=== PATIENT | female | born 1990 | race Caucasian/White ===

== ENCOUNTER → 2023-07-15 | Outpatient (CLI) | payer BC ==
--- NOTE | 2023-07-15 20:20 | US ---
EXAMINATION TYPE: US extremity nonvasc mass RT DATE OF EXAM: 07/15/2023 COMPARISON: NONE CLINICAL INDICATION: Female, 32 years old with history of R22.31 LOCALIZED SWELLING, MASS AND LUMP, R IGHT UP; Lump rt arm at elbow x 5 months. TECHNIQUE: FINDINGS: Scanned right arm at elbow vessels visualized. No abnormalities seen. IMPRESSION: 1. No abnormal ultrasound findings at the palpable region right elbow.
== END | disposition home or self-care (01) ==
LOC: RADUSWWP 14:21
PROVIDERS: ATTEND Family Medicine
DX: R22.31 Localized swelling, mass and lump, right upper limb (principal)

== ENCOUNTER 2023-09-24 11:16 | Day surgery (SDC) | payer BC ==
[2023-09-23 08:57] VITALS: BMI 20.5
[~2023-09-24 11:16] MED LIST: LIDOCAINE 1% (10MG/ML) FOR IV START INTRADERMA PRN; MIDAZOLAM 2 MG/2 ML VIAL IV PRN
[2023-09-24 12:58] VITALS: TEMP 98.2
[2023-09-24] MEDS: IV FLUID CONTINUATION 1,000 ML IV ONE ×2 (13:05→13:39)
[2023-09-24] MEDS: LACTATED RINGERS 1,000 ML IV SCH (13:07)
[2023-09-24] MEDS ORDERED: LIDOCAINE 1% INJ 10MG/ML (20 ML MDV) ONE (13:40)
[2023-09-24] MEDS ORDERED: PROPOFOL 10 MG/ML 20 ML VIAL IV ONE (13:40)
--- NOTE | 2023-09-24 13:55 | P.PCN ---
Date of Procedure: 09/24/23 Procedure(s) Performed: BRIEF HISTORY: Patient is a 32-year-old pleasant white female scheduled for an elective colonoscopy as a part of evaluation of change in bowel habits for the last 6 months duration. PROCEDURE PERFORMED: Colonoscopy. PREOPERATIVE DIAGNOSIS: Change in bowel habits. IV sedation per Anesthesia. PROCEDURE: After informed consent was obtained, the patient, was brought into the endoscopy unit. IV sedation was administered by Anesthesia under continuous monitoring. Digital rectal examination was normal. Initially the Olympus CF-160 flexible video colonoscope was then inserted in the rectum, gradually advanced into the cecum without any difficulty. Careful examination was performed as the scope was gradually being withdrawn. Ileocecal valve and the appendiceal orifice were visualized and appeared normal. Prep was excellent. Terminal ileum was intubated in 20 cm visualized and appeared normal. Mucosa of the cecum, ascending colon, transverse colon, descending colon, sigmoid colon, and rectum appeared normal. Retroflexion was performed in the rectum and no lesions were seen. The patient tolerated the procedure well. IMPRESSION: Normal-appearing colon from rectum to cecum with no evidence of colorectal neoplasia. Normal-appearing terminal ileum. RECOMMENDATIONS: Findings of this examination were discussed with the patient as well as her family. She was advised to have repeat screening colonoscopy at age 47..
[2023-09-24 14:16] VITALS: BP 103/71; PULSE 75; RESP 13
== END 2023-09-24 14:39 | disposition home or self-care (01) ==
LOC: ORWHC2ENDO 11:16
PROVIDERS: ATTEND Internal Medicine Gastroenterology
DX: R19.4 Change in bowel habit (principal); Z98.890 Other specified postprocedural states
CPT/HCPCS: 45378; J2001; J2704

== ENCOUNTER → 2024-04-13 | Outpatient (CLI) | payer BC ==
--- NOTE | 2024-04-13 07:44 | MM ---
Reason for Exam: Clinical finding. Baseline mammogram. Patient History: Menarche at age 17. Patient has no children. Bilateral Implants. Last menstrual period: 03/03/2024 Prior Study Comparison: Patient's first Mammogram. Tissue Density: The breasts are heterogeneously dense, which may obscure small masses. Findings: Bilateral retropectoral silicone implants. No suspicious microcalcification. Palpable marker along the lateral aspect of the left breast. Underlying oval circumscribed 2 cm nodule. No other abnormality is seen. Overall Assessment: Incomplete: need additional imaging evaluation, BI-RAD 0 Management: Diagnostic Breast Ultrasound of the left breast. [facility], , 04/13/2024 7:41 AM. Electronically signed and approved by: Jose Acosta M.D. Radiologist
--- NOTE | 2024-04-13 08:09 | USB ---
Patient History: Menarche at age 17. Patient has no children. Bilateral Implants. Technique: Method: Whole Breast Handheld. Doppler: Color. Patient Position: RPO. Findings: The whole breast of the left breast, the axilla of the left breast and the retroareolar of the left breast were scanned. A complete US of all four quadrants of the breast the maxilla, and retro-areolar region were reviewed. At the patient's palpable site, 2:00 position, 2 cm from the nipple, is a lobulated hypoechoic solid mass with posterior through transmission. Some images suggest 2 abutting nodules. Aggregate dimension up to 1.7 cm. Likely fibroadenoma. Dense tissue is present elsewhere throughout the breast. Underlying breast implant. No other solid or cystic lesion or axillary lymphadenopathy. Overall Assessment: Probably benign, BI-RAD 3 Management: Diagnostic Breast Ultrasound of the left breast in 6 months. For suspected fibroadenoma. The patient can be rescanned sooner if any growth is encountered. If symptomatic and removal is desired, initial ultrasound-guided biopsy can be performed. A clinical breast exam by your physician is recommended on an annual basis and results should be correlated with mammographic findings. This exam should not preclude additional follow-up of suspicious palpable abnormalities. Results were given to the patient verbally at the time of exam. [facility], , 04/13/2024 8:06 AM. Electronically signed and approved by: Jose Acosta M.D. Radiologist
== END | disposition home or self-care (01) ==
LOC: RADMAMWWP 07:09
PROVIDERS: ATTEND Obstetrics & Gynecology
DX: N63.0 Unspecified lump in unspecified breast (principal); R92.333 Mammographic heterogeneous density, bilateral breasts; Z98.82 Breast implant status
CPT/HCPCS: 77062; 77066

== ENCOUNTER → 2024-08-17 | Outpatient (CLI) | payer BC ==
--- NOTE | 2024-08-17 08:24 | USB ---
Reason for Exam: Follow-up at short interval from prior study. Patient History: Menarche at age 17. Patient has no children. Bilateral Implants. Technique: Method: Targeted. Prior Study Comparison: 04/13/2024 Bilateral MG 3D diag mammo imp w/cad [facility], [facility]. Findings: The lateral section of the breast of the left breast, the area of palpable concern of the left breast, the axilla of the left breast and the retroareolar of the left breast were scanned. Targeted ultrasound. There are persistent 2-3 circumscribed oval hypoechoic masses at 2 to 3:00 position felt significant interval change or growth from prior study measuring up to 1.5 cm on long axis. Findings in patient this age likely reflect adjacent fibroadenomas. Overall Assessment: Benign, BI-RAD 2 Management: Screening Mammogram of both breasts at age 42. Managed clinically. Lesions currently are painless. If lesions become symptomatic and/or enlarge; repeat imaging and/or tissue sampling could be performed. A clinical breast exam by your physician is recommended on an annual basis and results should be correlated with mammographic findings. This exam should not preclude additional follow-up of suspicious palpable abnormalities. Results were given to the patient verbally at the time of exam. [facility], , 08/17/2024 8:22 AM. Electronically signed and approved by: Chato Rodriguez M.D.
== END | disposition home or self-care (01) ==
LOC: RADUSWWP 07:44
PROVIDERS: ATTEND Obstetrics & Gynecology
DX: R92.8 Other abnormal and inconclusive findings on diagnostic imaging of breast (principal)